=== PATIENT | male | born 1950 | race Two or more races ===

== ENCOUNTER 2017-11-25 05:37 | Day surgery (SDC) | payer MEDICARE, MEDICAID ==
--- NOTE | 2017-11-24 15:02 | Pre-Procedure Note/Attestation ---
Pre-Procedure Note/Attestation Complete Prior to Procedure Planned Procedure: right Procedure Narrative: phaco with IOL Indications for Procedure Pre-Operative Diagnosis: pseudophakia Attestation I attest that I discussed the nature of the procedure; its benefits; risks and complications; and alternatives (and the risks and benefits of such alternatives ), prior to the procedure, with the patient (or the patient's legal pharmaceutical representative). I attest that, if there was a reasonable possibility of needing a blood transfusion, the patient (or the patient's legal pharmaceutical representative) was given the [facility] standardized written summary, pursuant to the Kaleb Diego Blood Safety Act ([place] Health and Safety Code # 1645, as amended). I attest that I re-evaluated the patient just prior to the surgery and that there has been no change in the patient's H&P, except as documented below: ESHA STRONG Nov 24, 2017 15:02
--- NOTE | 2017-11-24 15:04 | Opthalmology H&P ---
Ophthalmology H&P H&P Chief Complaint: decreased vision in right eye HPI Vision Affects Ability to: read, focus/use eyes together, manage personal affairs HPI Narrative blurry vision Exam Visual Acuity: OD: 20/100 OS: 20/30 Tension: OD: 13 OS: 14 Eye Exam: normal OU: external exam, palpebral fissure-width, marginal reflex distance, levator function, corneas, anterior chambers, findings: lens - OD: ns OS: ns, fundus exam - possible ME OD Assessment/Plan Diagnosis: (1) Nuclear sclerotic cataract of right eye Treatment Plan: cataract extraction w/ lens implant Goals of Treatment: improvement of vision, enhance quality of life Attestation Attestation The risks and benefits of the surgery as well as alternative procedures were explained to the patient in detail. ESHA STRONG Nov 24, 2017 15:04
[2017-11-25] VITALS (8 sets, daily range): BP systolic 125–152; BP diastolic 80–89
[~2017-11-25] VITALS: Ht 162.6 cm; Wt 79.4 kg
[~2017-11-25 05:37] MED LIST: ASPIR 8181 MG ORAL; BENAZEPRIL HCL40 MG ORAL; HYDROCHLOROTHIA25 MG ORAL
[2017-11-25] MEDS: Ketorolac Tromethamine Opth 5ml Soln RIGHT EYE SCH ×3 (06:42→06:55)
[2017-11-25] MEDS: Cyclopentolate 1% Opth Sol 2ml RIGHT EYE SCH ×3 (06:42→06:55)
[2017-11-25] MEDS: Tropicamide 1% Opth 15ml Soln RIGHT EYE SCH ×3 (06:42→06:55)
[2017-11-25] MEDS: Phenylephrine 10% Opth Soln 5ml RIGHT EYE SCH ×3 (06:42→06:55)
[2017-11-25] MEDS: Tobramycin Op Soln 0.3% 5ml RIGHT EYE SCH ×3 (06:43→06:55)
[2017-11-25] MEDS ORDERED: Maxitrol Opth Oint 3.5gm ONE (07:00)
[2017-11-25] MEDS ORDERED: Akten 3.5% 1ml Btl RIGHT EYE ONE (07:00)
[2017-11-25] MEDS ORDERED: EPINEPHrine 1mg/1ml Amp ONE (07:00)
[2017-11-25] MEDS ORDERED: Pred Forte 1% Opth Susp 1ml ONE (07:00)
[2017-11-25] MEDS ORDERED: Proparacaine 0.5% Opth Soln 15ml RIGHT EYE ONE (07:00)
[2017-11-25] MEDS ORDERED: BSS 500ml btl ONE ×2 (07:00→11:50)
[2017-11-25] MEDS ORDERED: Tetracaine 0.5% Opth 4ml Soln ONE (07:00)
[2017-11-25] MEDS ORDERED: Dexamethasone 4mg/ml vial ONE (07:00)
[2017-11-25] MEDS ORDERED: Sterile Water 10ml Vial ONE (07:00)
[2017-11-25] MEDS ORDERED: Tetracaine 0.5% Opth 4ml Soln RIGHT EYE ONE (07:00)
[2017-11-25 07:49] LABS: ANION GAP 8 mmol/L (5-15); BLOOD UREA NITROGEN 17 mg/dL (7-18); CALCIUM 8.6 MG/DL (8.5-10.1); CARBON DIOXIDE 29 MMOL/L (21-32); CHLORIDE 104 MMOL/L (98-107); CREATININE 0.8 MG/DL (0.55-1.30); POTASSIUM 3.7 MMOL/L (3.5-5.1); SODIUM 141 MMOL/L (136-145)
[2017-11-25] MEDS ORDERED: Lidocaine 1% MPF 10mg/ml 5ml ONE (08:30)
[2017-11-25] MEDS ORDERED: Sterile Water Irrig 1000ml IRRIG ONE (08:30)
[2017-11-25] MEDS ORDERED: Midazolam 2mg/2ml Inj ONE (08:30)
[2017-11-25] MEDS ORDERED: fentaNYL 100 mcg/2 mL IV ONE (08:30)
[2017-11-25] MEDS ORDERED: NS Irrig 1000ml ONE (08:30)
[2017-11-25] MEDS ORDERED: LR 1000ml ONE (08:30)
--- NOTE | 2017-11-25 08:39 | Anethesia Preoperative Eval ---
Anesthesia Pre-op PMH/ROS General Date of Evaluation: Nov 25, 2017 Anesthesiologist: Nick ASA Score: ASA 2 Mallampati Score Class I : Soft palate, uvula, fauces, pillars visible Class II: Soft palate, uvula, fauces visible Class III: Soft palate, base of uvula visible Class IV: Only hard plate visible Mallampati Classification: Class II Surgeon: Taya Diagnosis: Right cataract Surgical Procedure: Right cataract extraction with IOL Anesthesia History: none Family History: no anesthesia problems Allergies: Coded Allergies: No Known Allergies (Unverified , 11/25/17) Medications: see eMAR Past Medical History Cardiovascular: Reports: HTN, Denies: CAD, NV, valve dz, arrhythmia, other Pulmonary: Denies: asthma, COPD, MITCHEL, other Gastrointestinal/Genitourinary: Reports: other - chronic kidney stones, Denies: GERD, CRI, ESRD Neurologic/Psychiatric: Denies: dementia, CVA, depression/anxiety, TIA, other Endocrine: Denies: DM, hypothyroidism, steroids, other HEENT: Denies: cataract (L), cataract (R), glaucoma, CADDO (L), CADDO (R), other Hematology/Immune: Denies: anemia, DVT, bleeding disorder, other Musculoskeletal/Integumentary: Denies: OA, RA, DJD, DDD, edema, other PSxH Narrative: Lithotripsy Anesthesia Pre-op Phys. Exam Physician Exam Last Vital Signs Date Time Temp Pulse Resp B/P (MAP) Pulse Ox O2 Delivery O2 Flow Rate FiO2 11/25/17 06:53 97.0 47 17 148/88 98 Room Air Constitutional: NAD Cardiovascular: RRR Respiratory: CTA Airway Exam Mallampati Score: Class III MO: full ROM: full Teeth: intact Anesthesia Pre-op A/P Labs Chemistry Test 11/25/17 07:00 Sodium Level 141 MMOL/L (136-145) Potassium Level 3.7 MMOL/L (3.5-5.1) Chloride Level 104 MMOL/L (98-107) Carbon Dioxide Level 29 MMOL/L (21-32) Anion Gap 8 mmol/L (5-15) Blood Urea Nitrogen 17 mg/dL (7-18) Creatinine 0.8 MG/DL (0.55-1.30) Estimat Glomerular Filtration Rate > 60 mL/min (>60) Glucose Level 96 MG/DL (74-106) Calcium Level 8.6 MG/DL (8.5-10.1) Studies Pre-op Studies: EKG - sr Risk Assessment & Plan Assessment: ASA II Plan: MAC Status Change Before Surgery: No Pre-Antibiotics Drug: N/A DEANNA BRUNO M.D. Nov 25, 2017 08:39
[2017-11-25] MEDS ORDERED: LR 1000ml 1,000 ML IVLG SCH (08:47)
--- NOTE | 2017-11-25 08:48 | Immediate Post-Op Evaluation ---
Immediate Post-Op Evalulation Immediate Post-Op Evalulation Procedure: Right cataract extraction with IOL Date of Evaluation: Nov 25, 2017 Time of Evaluation: 10:27 IV Fluids: 400 Blood Products: 0 Estimated Blood Loss: 0 Urinary Output: 0 Blood Pressure Systolic: 125 Blood Pressure Diastolic: 79 Pulse Rate: 44 Respiratory Rate: 16 O2 Sat by Pulse Oximetry: 98 Temperature (Fahrenheit): 98.3 Pain Score (1-10): 0 Nausea: No Vomiting: No Complications 0 Patient Status: awake, reacts, patent, none Hydration Status: adequate Drug: N/A DEANNA BRUNO M.D. Nov 25, 2017 08:48
--- NOTE | 2017-11-25 08:49 | 48 Hour Post Anesthesia Eval ---
Post Anesthesia Evaluation Procedure: Right cataract extraction with IOL Date of Evaluation: Nov 25, 2017 Airway: patent Nausea: No Vomiting: No Pain Intensity: 0 Hydration Status: adequate Cardiopulmonary Status: at baseline Mental Status/LOC: patient returned to baseline Post-Anesthesia Complications: 0 Follow-up care needed: ready to discharge DEANNA BRUNO M.D. Nov 25, 2017 08:49
[2017-11-25] MEDS ORDERED: DiphenhydrAMINE 50mg/ml Inj IVP PRN (09:00)
[2017-11-25] MEDS ORDERED: Povidone-Iodine 5% opth solution ONE (11:50)
[2017-11-25] MEDS ORDERED: Carbachol 0.01% Op Soln 1.5ml vial ONE (11:50)
[2017-11-25] MEDS ORDERED: Sodium Hyaluronate 14 mg/ml 0.85ml ONE (11:51)
[2017-11-25] MEDS ORDERED: BSS 15ml BTL ONE (11:51)
[2017-11-25] MEDS ORDERED: Pilocarpine 2% Opth 15ml Soln ONE (14:05)
--- NOTE | 2017-11-28 08:47 | Brief Operative Note ---
Immediate Post Operative Note Operative Note Chief Complaint: blurry vision Pre-op Diagnosis: Cataract, OD Procedure: phaco with IOL, OD Post-op Diagnosis: Pseudophakia, OD Post-op Diagnosis: same as pre-op Findings: consistent w/pre-op dx studies Surgeon: Taya Anesthesiologist: David Anesthesia: MAC Specimen: none Complications: none Condition: stable Fluids: LR Estimated Blood Loss: none Drains: none Implant(s) used?: Yes ESHA STRONG Nov 28, 2017 08:47
--- NOTE | 2017-11-28 08:50 | Operative Note - PDOC ---
Operative Note Operative Note Date of Operation/Procedure: Nov 25, 2017 Chief Complaint: blurry vision Pre-op Diagnosis: Cataract, OD Procedure: phaco with IOL, OD Post-op Diagnosis: Pseudophakia, OD Post-op Diagnosis: same as pre-op Operative Findings: consistent w/pre-op dx studies Surgeon: Taya Anesthesiologist: David Anesthesia: MAC Specimen: none Complications: none Condition: stable Fluids: LR Estimated Blood Loss: none Drains: none Implant(s) used?: Yes Indications for Procedure cataract Description of Procedure This patient has been complaining visually significant cataract in the affected eye with the best corrected visual acuity under moderate glare conditions worse. The patient complains of difficulties with glare in performing activities of daily living and wants to manage personal affairs with comfort and accuracy and see well enough to move with safety at home and outdoors. The risks, benefits and alternatives of the procedure were discussed with the patient in the office prior to scheduling surgery. All questions from the patient were answered after the surgical procedure was explained in detail. The risks of the procedure as explained to the patient include, but are not limited to, pain, infection, bleeding, loss of vision, retinal detachment, need for further surgery, loss of lens nucleus, double vision, etc. Alternative procedures were discussed which include, to do nothing or seek a second opinion. Informed consent for this procedure was obtained from the patient. The patient was referred to a primary care physician for a cardiopulmonary clearance prior to surgery, after proper evaluation was done patient was properly scheduled for outpatient surgery. The patient was brought to the operating room where the anesthesiologist established I.V. lines and cardiac monitoring leads. Mild intravenous sedation was administered. The patient was then prepared with a 5% solution of povidone -iodine to the conjunctival fornix and lashes, and a 5% solution of povidone- iodine to the lids and periorbital skin. The patient was then draped in the usual sterile fashion. A lid speculum was then placed in the operative eye. A keratome blade was then used to create a biplanar incision into the anterior chamber. Viscoelastics was then instilled into the anterior chamber. A capsulorrhexis was then fashioned with an utrata forceps, followed by hydrodissection and hydro delineation of the lens nucleus. Paracentesis incision was made at 3 o'clock with sharp blade. The phacoemulsification unit, after being properly adjusted and tested, was then used to emulsify the nucleus. Residual cortical material was aspirated with the irrigation and aspiration unit. Healon was then instilled into the anterior chamber. The corneal wound was then enlarged to the size of the optic with the marcela keratome blade. The intraocular lens was then inspected for right power and size and thought to be satisfactory. Then the lens was gently placed in the capsular bag. Positioning within the capsular bag was confirmed by direct visualization. Optic centration was accomplished with a Sinskey hook. Viscoelastics was removed from the anterior chamber using the irrigation and aspiration unit. The corneal wound was then tested for leaks and none were found. The lid speculum were then removed. Sponge and needle counts were correct. An eye patch and shield were placed over the operative eye. The patient was taken to the recovery room in stable condition. There were no complications. The patient tolerated the procedure well. The patient was then transferred to the ambulatory surgery unit in stable and satisfactory condition , was given detailed written instructions and asked to follow up in the office the next day. ESHA STRONG Nov 28, 2017 08:50
== END 2017-11-25 11:30 | disposition home or self-care (01) ==
LOC: SUR 05:37
DX: H25.11 Age-related nuclear cataract, right eye (principal); I10 Essential (primary) hypertension; Z87.442 Personal history of urinary calculi
CPT/HCPCS: 36415; 66984; 80048; J0171; J1100; J2250; J3010; J3370; J7120; V2632; 94003; 94150; A4216